=== PATIENT | male | born 1940 | race Caucasian/White ===

== ENCOUNTER 2018-10-09 07:28 | Emergency (ER) | payer OTHER ==
[~2018-10-09] VITALS: Ht 167.6 cm; Wt 90.7 kg
[~2018-10-09 07:28] MED LIST: ANTIVERT25 M1 PO; M/A
[2018-10-09] MEDS ORDERED: COZAAR25 MG (07:52)
[2018-10-09] MEDS ORDERED: NORVASC5 MG (07:53)
== END 2018-10-09 09:44 | disposition home or self-care (01) ==
LOC: ER 07:28
DX: M54.5 Low back pain (principal)

== ENCOUNTER 2018-10-23 07:48 | Emergency (ER) | payer OTHER ==
[~2018-10-23] VITALS: Ht 167.6 cm; Wt 83.9 kg
[~2018-10-23 07:48] MED LIST changes: +COZAAR25 MG; +NORVASC5 MG
== END 2018-10-23 11:15 | disposition home or self-care (01) ==
LOC: ER 07:48
DX: R07.89 Other chest pain (principal)

== ENCOUNTER 2019-10-31 20:53 | Inpatient (IN) | payer OTHER ==
[~2019-10-31] VITALS: Ht 167.6 cm; Wt 99.8 kg
[2019-10-31] MEDS ORDERED: TAMS0.4C (21:18)
[2019-10-31] MEDS ORDERED: ASPIR 8181 MG (21:18)
[2019-10-31] MEDS ORDERED: CRESTOR5 MG (21:18)
[2019-10-31] MEDS ORDERED: XYZAL5 MG (21:18)
[2020-01-02] MEDS ORDERED: XOPENEX0.63 MG/3 IH (10:36)
[2020-01-02] MEDS ORDERED: CHOLESTYRAMINE P4 GM PO (10:37)
[2020-01-02] MEDS ORDERED: FERROUS SU220 MG/5 M PO (10:37)
[2020-01-02] MEDS ORDERED: ELIQUIS5 MG PO (10:37)
[2020-01-02] MEDS ORDERED: METOPROLOL TART50 MG PO (10:38)
[2020-01-02] MEDS ORDERED: ISORDIL10 MG PO (10:38)
[2020-01-02] MEDS ORDERED: LOSARTAN POTASS25 MG PO (10:38)
[2020-01-02] MEDS ORDERED: CRESTOR5 MG GT (10:39)
[2020-01-02] MEDS ORDERED: KEPPRA100 MG/1 M PO (10:39)
== END 2020-01-02 17:51 | disposition home or self-care (01) | DRG 4 ==
LOC: ER 20:53 → ICU-2 22:55 → ICU 22:55 → ICU-2 23:35 → ICU 11-02 23:36 → SURH 12-28 18:22
PROVIDERS: Otolaryngology; ADMIT Internal Medicine; ATTEND Internal Medicine
PROC: 5A1955Z Respiratory Ventilation, Greater than 96 Consecutive Hours (ICD-10-PCS; 2019-10-31)
PROC: 0BH17EZ Insertion of Endotracheal Airway into Trachea, Via Natural or Artificial Opening (ICD-10-PCS; 2019-10-31)
PROC: 4A033R1 Measurement of Arterial Saturation, Peripheral, Percutaneous Approach (ICD-10-PCS; 2019-10-31)
PROC: 3E0F7GC Introduction of Other Therapeutic Substance into Respiratory Tract, Via Natural or Artificial Opening (ICD-10-PCS; 2019-10-31)
PROC: 0T9B70Z Drainage of Bladder with Drainage Device, Via Natural or Artificial Opening (ICD-10-PCS; 2019-10-31)
PROC: 4A12X4Z Monitoring of Cardiac Electrical Activity, External Approach (ICD-10-PCS; 2019-10-31)
PROC: B246ZZZ Ultrasonography of Right and Left Heart (ICD-10-PCS; 2019-11-01)
PROC: BW28ZZZ Computerized Tomography (CT Scan) of Head (ICD-10-PCS; 2019-11-01)
PROC: BB24ZZZ Computerized Tomography (CT Scan) of Bilateral Lungs (ICD-10-PCS; 2019-11-01)
PROC: 05H533Z Insertion of Infusion Device into Right Subclavian Vein, Percutaneous Approach (ICD-10-PCS; 2019-11-02)
PROC: 3E0336Z Introduction of Nutritional Substance into Peripheral Vein, Percutaneous Approach (ICD-10-PCS; 2019-11-02)
PROC: 0B110F4 Bypass Trachea to Cutaneous with Tracheostomy Device, Open Approach (ICD-10-PCS; principal; 2019-12-22 09:00)
DX: J96.01 Acute respiratory failure with hypoxia (principal); I46.8 Cardiac arrest due to other underlying condition; I21.4 Non-ST elevation (NSTEMI) myocardial infarction; I50.21 Acute systolic (congestive) heart failure; J18.9 Pneumonia, unspecified organism; E87.4 Mixed disorder of acid-base balance; K92.0 Hematemesis; J98.11 Atelectasis; I67.82 Cerebral ischemia; G93.1 Anoxic brain damage, not elsewhere classified; I48.0 Paroxysmal atrial fibrillation; I08.3 Combined rheumatic disorders of mitral, aortic and tricuspid valves; I11.0 Hypertensive heart disease with heart failure; R31.0 Gross hematuria; E66.09 Other obesity due to excess calories; E03.8 Other specified hypothyroidism; N39.8 Other specified disorders of urinary system; Z79.01 Long term (current) use of anticoagulants